=== PATIENT | female | born 1950 | race Caucasian/White ===

== ENCOUNTER 2017-02-13 15:23 | Inpatient (IN) | payer MEDICAID, OTHER ==
[~2017-02-13] VITALS: Ht 167.6 cm; Wt 64.3 kg
[~2017-02-13 15:23] MED LIST: ALBU18HF; BUDE10.22; CITA40TA12; CLON1TAB; CLOP75TA52; IPRA4AER; LEVO25CA2; LORA10TA62; MORP50CA19; PRED10TA14; TIOT18CA
[2017-02-13 15:39] LABS: HEMATOCRIT 37.9 % (34.6-47.8); HEMOGLOBIN 12.5 g/dL (11.7-16.4)
[2017-02-13 15:55] LABS: IS PT STATUS REG ER OR PRE ER? YES
[2017-02-13] MEDS ORDERED: POLYETHYLENE GLYCOL 17 GM PACKET PO PRN (17:30)
[2017-02-13] MEDS ORDERED: GUAIFENESIN/DM 200-20MG, 10ML UDC PO PRN (17:30)
[2017-02-13] MEDS ORDERED: LABETALOL 5MG/ML, 20ML IVPush PRN (17:30)
[2017-02-13] MEDS ORDERED: ONDANSETRON ODT 4 MG PO PRN (17:30)
[2017-02-13] MEDS ORDERED: ONDANSETRON 2MG/ML, 2ML IVPush PRN (17:30)
[2017-02-13] MEDS ORDERED: NALOXONE 0.4 MG/ML, 1ML ONE (17:41)
[2017-02-13 17:49] LABS: IS PT STATUS REG ER OR PRE ER? YES
[2017-02-13] MEDS ORDERED: NALOXONE 0.4 MG/ML, 1ML IVPush ONE (18:00)
[2017-02-13 18:58] VITALS: BP 158/86
[2017-02-13 19:08] LABS: DAU SCREEN DISCLAIMER
[2017-02-13] MEDS ORDERED: ALBUTEROL/IPRATROPIUM 2.5MG/0.5MG, 3 ML ONE (19:08)
[2017-02-13] MEDS ORDERED: ALBUTEROL/IPRATROPIUM 2.5MG/0.5MG, 3 ML NPPB PRN (19:30)
[2017-02-13] MEDS: ALBUTEROL SULFATE 2.5 MG/3 ML NPPB SCH (21:00)
[2017-02-13] MEDS: ATORVASTATIN 40 MG TABLET PO SCH (21:00)
[2017-02-13] MEDS: ALBUTEROL/IPRATROPIUM 2.5MG/0.5MG, 3 ML NPPB SCH (21:00)
[2017-02-13] MEDS: ENOXAPARIN 40 MG/0.4 ML SQ SCH (23:26)
[2017-02-13] MEDS: D5%-0.45% NACL 1,000 ML IV SCH (23:27)
[2017-02-13 23:33] VITALS: BP 158/86
[2017-02-14] MEDS ORDERED: ACETAMINOPHEN 650 MG SUPP PR PRN (00:30)
[2017-02-14 01:27] VITALS: BP 150/87
[2017-02-14 01:36] LABS: IS PT STATUS REG ER OR PRE ER? NO
[2017-02-14] MEDS: ALBUTEROL SULFATE 2.5 MG/3 ML NPPB SCH ×4 (03:00→21:00)
[2017-02-14] MEDS: ALBUTEROL/IPRATROPIUM 2.5MG/0.5MG, 3 ML NPPB SCH ×4 (03:00→20:20)
[2017-02-14 06:02] LABS: HEMATOCRIT 38.5 % (34.6-47.8); HEMOGLOBIN 12.7 g/dL (11.7-16.4); WHITE BLOOD COUNT 8.4 x10^3/uL (3.4-10)
[2017-02-14 06:14] LABS: BLOOD UREA NITROGEN 14 mg/dL (7-18)
[2017-02-14 06:19] LABS: ASPARTATE AMINO TRANSFERASE 12 U/L (15-37)
[2017-02-14 08:13] VITALS: BP 145/80
[2017-02-14] MEDS ORDERED: MAGN500T PO (09:45)
[2017-02-14] MEDS ORDERED: METO25TA35 PO (09:45)
[2017-02-14] MEDS ORDERED: ATOR10TA9 PO (09:45)
[2017-02-14] MEDS ORDERED: PROM25TA10 PO (09:45)
[2017-02-14] MEDS ORDERED: OMEP-110 PO (09:45)
[2017-02-14] MEDS ORDERED: GABA600T2 PO (09:45)
[2017-02-14] MEDS ORDERED: POTA20TA14 PO (09:45)
[2017-02-14] MEDS ORDERED: ENOX40SY4 SQ (09:45)
[2017-02-14] MEDS ORDERED: BACL-19 PO (09:45)
[2017-02-14] MEDS ORDERED: SERT100T5 PO (09:45)
[2017-02-14] MEDS ORDERED: CALC-500 PO (09:45)
[2017-02-14] MEDS ORDERED: DOCU100C33 PO (09:45)
[2017-02-14] MEDS ORDERED: PRED2.5T PO (09:45)
[2017-02-14] MEDS ORDERED: ASPI-621 PO (09:45)
[2017-02-14] MEDS ORDERED: LEVE100S PO (09:45)
[2017-02-14] MEDS ORDERED: SUMA25TA4 PO (09:45)
[2017-02-14] MEDS ORDERED: ALPR-475 PO (09:45)
[2017-02-14] MEDS ORDERED: GUAI600T80 PO (09:45)
[2017-02-14] MEDS ORDERED: ASPI-691 PO (09:45)
[2017-02-14] MEDS ORDERED: OXYC10TA6 PO (09:45)
[2017-02-14] MEDS ORDERED: FURO20TA3 PO (09:45)
[2017-02-14] MEDS: CLOPIDOGREL 75 MG TABLET PO SCH (09:51)
[2017-02-14] MEDS: SENNA/DOCUSATE TABLET PO SCH (09:51)
[2017-02-14] MEDS: FLUTICASONE/VILANTEROL 200-25MCG/INH INH SCH (09:51)
[2017-02-14] MEDS: OXYcodone IR 5MG TABLET PO PRN ×2 (09:51→21:06)
[2017-02-14] MEDS ORDERED: KETOROLAC 30 MG/1 ML ONE (14:29)
[2017-02-14] MEDS ORDERED: KETOROLAC 30 MG/1 ML IVPush ONE (14:30)
[2017-02-14 14:47] VITALS: BP 159/90
[2017-02-14] MEDS: ASA/APAP/ CAFFEINE TABLET PO PRN (18:09)
[2017-02-14] MEDS: D5%-0.45% NACL 1,000 ML IV SCH (18:10)
[2017-02-14 20:21] VITALS: BP 167/96
[2017-02-14] MEDS ORDERED: DOCUSATE 100 MG CAPSULE PO SCH (21:00)
[2017-02-14] MEDS: GUAIFENESIN ER 600 MG TABLET PO SCH (21:07)
[2017-02-14] MEDS: ATORVASTATIN 40 MG TABLET PO SCH (21:07)
[2017-02-15] MEDS: ENOXAPARIN 40 MG/0.4 ML SQ SCH (01:41)
[2017-02-15] MEDS: ASA/APAP/ CAFFEINE TABLET PO PRN ×2 (01:41→09:57)
[2017-02-15 01:53] VITALS: BP 162/92
[2017-02-15] MEDS: OXYcodone IR 5MG TABLET PO PRN ×2 (04:44→12:04)
[2017-02-15 05:02] LABS: BLOOD UREA NITROGEN 12 mg/dL (7-18)
[2017-02-15] MEDS ORDERED: METOPROLOL TARTRATE 25 MG TABLET PO SCH (07:00)
[2017-02-15 08:00] VITALS: BP 162/97
[2017-02-15] MEDS: ALBUTEROL/IPRATROPIUM 2.5MG/0.5MG, 3 ML NPPB SCH ×2 (08:27→11:40)
[2017-02-15] MEDS: FLUTICASONE/VILANTEROL 200-25MCG/INH INH SCH (08:37)
[2017-02-15] MEDS: GUAIFENESIN ER 600 MG TABLET PO SCH (08:37)
[2017-02-15] MEDS: SENNA/DOCUSATE TABLET PO SCH (08:37)
[2017-02-15] MEDS: CLOPIDOGREL 75 MG TABLET PO SCH (08:37)
[2017-02-15] MEDS ORDERED: CYCLOBENZAPRINE 10 MG TABLET PO SCH (09:00)
[2017-02-15] MEDS ORDERED: SERTRALINE 50MG TABLET PO SCH (09:00)
[2017-02-15] MEDS ORDERED: GABAPENTIN 100 MG CAPSULE PO SCH (09:00)
[2017-02-15] MEDS ORDERED: METO25TA35 PO (13:29)
[2017-02-15] MEDS ORDERED: OXYC5TAB3 PO (13:29)
[2017-02-15] MEDS ORDERED: CLOP75TA PO (13:29)
[2017-02-15] MEDS ORDERED: CYCL-259 PO (13:29)
[2017-02-15] MEDS ORDERED: GABA-826 PO (13:29)
[2017-02-15] MEDS ORDERED: SERT50TA5 PO (13:29)
[2017-02-15] MEDS ORDERED: ATOR40TA78 PO (13:29)
[2017-02-15] MEDS ORDERED: ALPR0.254 PO (13:29)
[2017-02-15] MEDS ORDERED: GUAI600T31 PO (13:29)
[2017-02-15 14:42] VITALS: BP 157/95
[2017-02-16 22:06] LABS: HDL CHOLESTEROL 78 mg/dL (>39); HDL-P (TOTAL) 33.7 umol/L (>=30.5); LDL CHOLESTEROL CALC 78 mg/dL (0-99); LDL SIZE 21.9 nm (>20.5); NON-HDL CHOLESTEROL 101 mg/dL (0-129); SMALL LDL-P <90 nmol/L (<=527); TRIGLYCERIDES 114 mg/dL (0-149)
[2017-02-17 03:06] LABS: LDL-P 737 nmol/L (<1000); LP-INSULIN RESISTANCE SCORE <25 (<=45)
== END 2017-02-15 16:19 | disposition home or self-care (01) | DRG 71 ==
LOC: ED 16:39 → EDIP 16:40 → ED 17:18 → 4WST 18:56
PROVIDERS: ADMIT Hospitalist; ATTEND Hospitalist
PROC: 0T9B70Z Drainage of Bladder with Drainage Device, Via Natural or Artificial Opening (ICD-10-PCS; principal; 2017-02-13)
DX: G93.40 Encephalopathy, unspecified (principal); G45.9 Transient cerebral ischemic attack, unspecified; I69.354 Hemiplegia and hemiparesis following cerebral infarction affecting left non-dominant side; Z99.81 Dependence on supplemental oxygen; J44.9 Chronic obstructive pulmonary disease, unspecified; E03.9 Hypothyroidism, unspecified; E78.5 Hyperlipidemia, unspecified; F41.9 Anxiety disorder, unspecified; I25.10 Atherosclerotic heart disease of native coronary artery without angina pectoris; E11.9 Type 2 diabetes mellitus without complications; G43.909 Migraine, unspecified, not intractable, without status migrainosus; F32.9 Major depressive disorder, single episode, unspecified; R47.81 Slurred speech; R29.810 Facial weakness; I10 Essential (primary) hypertension; H91.90 Unspecified hearing loss, unspecified ear; I25.2 Old myocardial infarction; K21.9 Gastro-esophageal reflux disease without esophagitis; Z79.02 Long term (current) use of antithrombotics/antiplatelets; Z79.899 Other long term (current) drug therapy; Z90.710 Acquired absence of both cervix and uterus; Z95.810 Presence of automatic (implantable) cardiac defibrillator; T42.4X5A Adverse effect of benzodiazepines, initial encounter; T42.8X5A Adverse effect of antiparkinsonism drugs and other central muscle-tone depressants, initial encounter; T40.2X5A Adverse effect of other opioids, initial encounter; T42.6X5A Adverse effect of other antiepileptic and sedative-hypnotic drugs, initial encounter
CPT/HCPCS: 36415; 70450; 71010; 80047; 80048; 80053; 80061; 80307; 81003; 82040; 82140; 82306; 82607; 82746; 82962; 83036; 83704; 84439; 84443; 84484; 85025; 85610; 85730; 87040; 93005; 93306; 93880; 94640; 95819; 96372; 96374; J1650; J1885; J2310; J7613; J7620; G0479